=== PATIENT | male | born 1960 | race Caucasian/White ===

== ENCOUNTER 2016-07-28 13:47 | Inpatient (IN) | payer MEDICARE ==
[2016-07-28] MEDS ORDERED: SODIUM CHLORIDE 0.9% 1,000 ML IV STA (14:50)
--- NOTE | 2016-07-28 15:09 | ED ---
General Adult HPI - General Chief complaint: Fall Stated complaint: Fall Time Seen by Provider: 07/28/16 14:21 Source: patient, EMS, RN notes reviewed Mode of arrival: EMS Limitations: no limitations - History of Present Illness Initial comments: Patient 55-year-old male who presents emergency room today by EMS, the chief complaint of fall occurred earlier today. Patient does admit to a history of MS. He states that he was being helped by caretakers when he slipped and fell landing on the left side. Doesn't pain to the left shoulder. Admits that he hit the left side of his face. Patient denies any headache. Does admit to some neck pain. Admits some pain in his lower back as well. Patient currently denies any other complaints or symptoms at this time. Patient denies any recent fever, chills, shortness of breath, chest pain, back pain, abdominal pain, nausea or vomiting, numbness or tingling, dysuria or hematuria, constipation or diarrhea, visual changes, or any other complaints. - Related Data Home Medications Medication Instructions Recorded Confirmed Aspirin EC [Ecotrin] 81 mg PO DAILY 08/02/14 07/28/16 Baclofen [Lioresal] 10 mg PO DAILY 08/02/14 07/28/16 Escitalopram Oxalate [Lexapro] 20 mg PO DAILY 08/02/14 07/28/16 ALPRAZolam [Xanax] 0.25 mg PO BID PRN 06/15/15 07/28/16 Gabapentin [Neurontin] 600 mg PO TID 06/15/15 07/28/16 Potassium Chloride [Klor-Con 20] 20 meq PO DAILY 06/15/15 07/28/16 Spironolactone 50 mg PO BID 06/15/15 07/28/16 traMADol HCL [Ultram] 50 mg PO BID 06/15/15 07/28/16 Atorvastatin [Lipitor] 5 mg PO HS 07/28/16 07/28/16 Exenatide Microspheres [Bydureon 2 mg SQ TH 07/28/16 07/28/16 Pen] Furosemide [Lasix] 40 mg PO DAILY 07/28/16 07/28/16 Glatiramer Acetate [Copaxone] 20 mg SQ DAILY 07/28/16 07/28/16 Insulin Aspart [NovoLOG Flexpen] See Protocol SQ ACHS 07/28/16 07/28/16 L.acidoph,Paracasei, B.lactis 1 cap PO DAILY 07/28/16 07/28/16 [Probiotic] Loperamide HCl [Imodium A-D] 4 mg PO DAILY PRN 07/28/16 07/28/16 Losartan [Cozaar] 50 mg PO DAILY 07/28/16 07/28/16 QUEtiapine [SEROquel] 50 mg PO HS 07/28/16 07/28/16 lamoTRIgine [LaMICtal] 25 mg PO BID 07/28/16 07/28/16 Allergies Allergy/AdvReac Type Severity Reaction Status Date / Time No Known Allergies Allergy Verified 07/28/16 14:58 Review of Systems ROS Statement: Those systems with pertinent positive or pertinent negative responses have been documented in the HPI. ROS Other: All systems not noted in ROS Statement are negative. Past Medical History Past Medical History: Heart Failure, Dementia, Diabetes Mellitus, Hyperlipidemia , Hypertension Additional Past Medical History / Comment(s): MS, vertigo, prostate History of Any Multi-Drug Resistant Organisms: None Reported Past Surgical History: No Surgical Hx Reported Past Psychological History: Depression Smoking Status: Former smoker Past Alcohol Use History: None Reported Past Drug Use History: None Reported General Exam - General Exam Comments Initial Comments: General: The patient is awake and alert, in no distress, and does not appear acutely ill. Patient resting comfortably and C-collared. Eye: Pupils are equal, round and reactive to light, extra-ocular movements are intact. No nystagmus. There is normal conjunctiva bilaterally. No signs of icterus. Ears, nose, mouth and throat: There are moist mucous membranes and no oral lesions. Neck: The neck is supple, there is no tenderness or JVD. Cardiovascular: There is a regular rate and rhythm. No murmur, rub or gallop is appreciated. Respiratory: Lungs are clear to auscultation, respirations are non-labored, breath sounds are equal. No wheezes, stridor, rales, or rhonchi. Gastrointestinal: Soft, non-distended, non-tender abdomen without masses or organomegaly noted. There is no rebound or guarding present. No CVA tenderness. Bowel sounds are unremarkable. Musculoskeletal: Patient has decreased range of motion of both left upper extremity and lower extremities. (Patient states chronic). Increased pain on palpation to the left shoulder. No obvious deformity. Pulses equal bilaterally 2+. Sensation intact. Shows good range of motion slightly decreased with abduction. Full range motion of right upper extremity. Strength 5/5 on the side. Neurological: A&O x 3. CN II-XII intact, There are no obvious motor or sensory deficits. Coordination appears grossly intact. Speech is normal. Skin: Skin is warm and dry and no rashes or lesions are noted. Psychiatric: Cooperative, appropriate mood & affect, normal judgment. Limitations: no limitations Course Vital Signs 07/28/16 07/28/16 14:07 16:21 Temperature 97.8 F 99.1 F Pulse Rate 109 H 103 H Respiratory 16 20 Rate Blood Pressure 117/72 O2 Sat by Pulse 95 93 L Oximetry Medical Decision Making - Medical Decision Making Patient's CAT scan reviewed and negative. Patient's x-rays reviewed unremarkable. Patient's last been reviewed. Patient be admitted for this exacerbation started on steroids here in the emergency room. Case discussed with attending physician Dr. Burr who did discuss case with physician Dr. Bangura who will admit the patient with consult Neurology. - Lab Data Result diagrams: 07/28/16 15:20 07/28/16 15:20 Lab Results 07/28/16 07/28/16 07/28/16 Range/Units 15:20 15:20 15:51 WBC 10.9 H (3.8-10.6) k/uL RBC 5.00 (4.30-5.90) m/uL Hgb 15.9 (13.0-17.5) gm/dL Hct 46.3 (39.0-53.0) % MCV 92.5 (80.0-100.0) fL MCH 31.8 (25.0-35.0) pg MCHC 34.4 (31.0-37.0) g/dL RDW 12.4 (11.5-15.5) % Plt Count 305 (150-450) k/uL Neutrophils % 76 % Lymphocytes % 16 % Monocytes % 5 % Eosinophils % 1 % Basophils % 0 % Neutrophils # 8.3 H (1.3-7.7) k/uL Lymphocytes # 1.7 (1.0-4.8) k/uL Monocytes # 0.5 (0-1.0) k/uL Eosinophils # 0.1 (0-0.7) k/uL Basophils # 0.0 (0-0.2) k/uL Sodium 140 (137-145) mmol/L Potassium 4.4 (3.5-5.1) mmol/L Chloride 98 (98-107) mmol/L Carbon Dioxide 28 (22-30) mmol/L Anion Gap 14 mmol/L BUN 15 (9-20) mg/dL Creatinine 0.58 L (0.66-1.25) mg/dL Est GFR (MDRD) Af Amer >60 (>60 ml/min/1.73 sqM) Est GFR (MDRD) Non-Af >60 (>60 ml/min/1.73 sqM) Glucose 203 H (74-99) mg/dL Calcium 9.7 (8.4-10.2) mg/dL Total Bilirubin 0.5 (0.2-1.3) mg/dL AST 28 (17-59) U/L ALT 39 (21-72) U/L Alkaline Phosphatase 142 H (38-126) U/L Total Protein 7.7 (6.3-8.2) g/dL Albumin 4.3 (3.5-5.0) g/dL Urine Color Yellow Urine Appearance Clear (Clear) Urine pH 5.0 (5.0-8.0) Ur Specific [place] 1.012 (1.001-1.035) Urine Protein Trace H (Negative) Urine Glucose (UA) 3+ H (Negative) Urine Ketones Negative (Negative) Urine Blood Negative (Negative) Urine Nitrate Negative (Negative) Urine Bilirubin Negative (Negative) Urine Urobilinogen <2.0 (<2.0) mg/dL Ur Leukocyte Esterase Negative (Negative) Urine Opiates Screen Not Detected (NotDetected) Ur Oxycodone Screen Not Detected (NotDetected) Urine Methadone Screen Not Detected (NotDetected) Ur Propoxyphene Screen Not Detected (NotDetected) Ur Barbiturates Screen Not Detected (NotDetected) U Tricyclic Antidepress Not Detected (NotDetected) Ur Phencyclidine Scrn Not Detected (NotDetected) Ur Amphetamines Screen Not Detected (NotDetected) U Methamphetamines Scrn Not Detected (NotDetected) U Benzodiazepines Scrn Detected H (NotDetected) Urine Cocaine Screen Not Detected (NotDetected) U Marijuana (THC) Screen Not Detected (NotDetected) Disposition Clinical Impression: Fall, Exacerbation of multiple sclerosis Disposition: ADMITTED IP TO THIS HOSP Condition: Stable Time of Disposition: 17:34
[2016-07-28 15:56] LABS: Basophils % (A) 0 %; CH 32.7; CHCM 35.5; Eosinophils # (A) 0.1 k/uL (0-0.7); Eosinophils % (A) 1 %; HCT 46.3 % (39.0-53.0); HDW 2.71; HGB 15.9 gm/dL (13.0-17.5); Luc # (Auto) 0.17; Luc % (Auto) 2; Lymphocytes # (A) 1.7 k/uL (1.0-4.8); Lymphocytes % (A) 16 %; MCH 31.8 pg (25.0-35.0); MCHC 34.4 g/dL (31.0-37.0); MCV 92.5 fL (80.0-100.0); Mean Platelet Volume 7.6; Monocytes # (A) 0.5 k/uL (0-1.0); Monocytes % (A) 5 %; Neutrophils # (A) 8.3 k/uL (1.3-7.7); Neutrophils % (A) 76 %; RDW 12.4 % (11.5-15.5); WBC 10.9 k/uL (3.8-10.6); WBC (Perox) 11.19
[2016-07-28 16:04] LABS: Appearance,Urine Clear (Clear); Bilirubin,Urine Negative (Negative); Glucose,Urine (UA) 3+ (Negative); Ketones,Urine Negative (Negative); Leukocyte Esterase,Urine Negative (Negative); Nitrite,Urine Negative (Negative); Protein,Urine Trace (Negative); Specific Gravity,Urine 1.012 (1.001-1.035); UA Billing (MACRO vs. MICRO) CHEM; Urobilinogen,Urine <2.0 mg/dL (<2.0)
[2016-07-28 16:08] LABS: ALT 39 U/L (21-72); AST 28 U/L (17-59); Alkaline Phosphatase 142 U/L (38-126); Anion Gap 14 mmol/L; Blood Urea Nitrogen 15 mg/dL (9-20); Calcium 9.7 mg/dL (8.4-10.2); Carbon Dioxide 28 mmol/L (22-30); Chloride 98 mmol/L (98-107); Glucose 203 mg/dL (74-99); Non-African American GFR(MDRD) >60 (>60 ml/min/1.73 sqM); Potassium 4.4 mmol/L (3.5-5.1); Sodium 140 mmol/L (137-145); Total Bilirubin 0.5 mg/dL (0.2-1.3); Total Protein 7.7 g/dL (6.3-8.2)
--- NOTE | 2016-07-28 16:25 | CT ---
EXAMINATION TYPE: CT brain april beckwith DATE OF EXAM: 07/28/2016 4:18 PM COMPARISON: NONE HISTORY: Fall today. CT DLP: 1683.20 mGycm Automated exposure control for dose reduction was used. TECHNIQUE: CT scan of the brain and cervical spine are performed without contrast. FINDINGS: Brain: There are generalized changes of sulcal prominence and ventriculomegaly, compatible with atrop hic change. There is diffuse periventricular white matter lucency, compatible with small vessel ische mekhi change. There is no acute focal lesion, mass effect or midline shift identified. I do not see chuckie dence of intracranial blood. There is minimal mucoperiosteal thickening involving the ethmoid air cells. No depressed skull fractu re is seen. IMPRESSION: 1. NO ACUTE INTRACRANIAL ABNORMALITY. 2. ATROPHIC CHANGE. 3. CHRONIC WHITE MATTER ISCHEMIC CHANGE. Cervical spine: There are emphysematous changes within the lungs. There is some shotty cervical adeno robbie. Prevertebral soft tissues are otherwise unremarkable. There is straightening of the normal cervical lordosis. Vertebral body height and alignment are maint ained. Atlantoaxial relationships are normal. There is disc space loss and hypertrophic spondylosis at C5-6 and C6-7. There is uncovertebral joint disease at these levels also. No fracture is seen. IMPRESSION: 1. NO ACUTE OSSEOUS LESION. 2. DEGENERATIVE CHANGE. 3. EMPHYSEMATOUS CHANGES WITHIN THE LUNGS.
[2016-07-28] MEDS ORDERED: methylPREDNISolone SOD SUCCI 125 MG/2 ML VIAL IV STA (17:35)
[2016-07-28] MEDS ORDERED: ACETAMINOPHEN TAB 325 MG TAB PO PRN (17:36)
[2016-07-28] MEDS ORDERED: SODIUM CHLORIDE 0.9% 1,000 ML IV ONE (17:36)
[2016-07-28] MEDS ORDERED: ONDANSETRON 4 MG/2 ML VIAL IVP PRN (17:36)
[2016-07-28] MEDS ORDERED: MORPHINE SULFATE 4 MG/ML SYRINGE IV PRN (17:36)
[2016-07-28] MEDS ORDERED: LORazepam 2 MG/ML SYRINGE IV PRN (17:36)
[2016-07-28] MEDS ORDERED: NALOXONE 0.4 MG/ML 1 ML VIAL IV PRN (17:36)
--- NOTE | 2016-07-28 18:05 | XR ---
EXAMINATION TYPE: XR shoulder complete LT DATE OF EXAM: 07/28/2016 5:30 PM COMPARISON: 08/02/2014 HISTORY: Pain after injury TECHNIQUE: Apartment technique 3 views FINDINGS: Bones and joints and soft tissues are negative for fracture or malalignment or other findin gs. IMPRESSION: No acute process.
--- NOTE | 2016-07-28 18:07 | XR ---
EXAMINATION TYPE: XR lumbar spine 2 or 3V DATE OF EXAM: 07/28/2016 5:30 PM COMPARISON: February 21, 2016 HISTORY: Low back pain after fall TECHNIQUE: 3 views FINDINGS: Negative for fracture or malalignment. Prominent multilevel degenerative osteoarthritis yadiel nges appreciated. Relatively mild degenerative disc multilevel changes. IMPRESSION: Negative for fracture or malalignment. No focal findings.
[2016-07-28 18:57] LABS: Hemoglobin A1C 8.7 % (4.2-6.1)
[2016-07-28 20:16] LABS: Glucose,Whole Blood 217 mg/dL (75-99)
[2016-07-28] MEDS: QUEtiapine 50 MG TAB PO SCH (20:53)
[2016-07-28] MEDS: traMADol 50 MG TAB PO SCH (20:53)
[2016-07-28] MEDS: GABAPENTIN 300 MG CAP PO SCH (20:53)
[2016-07-28] MEDS: SPIRONOLACTONE 25 MG TAB PO SCH (20:53)
[2016-07-28] MEDS: lamoTRIgine 25 MG TAB PO SCH (20:53)
[2016-07-28] MEDS: ATORVASTATIN 10 MG TAB PO SCH (20:54)
[2016-07-28] MEDS: INSULIN LISPRO (humaLOG) 300 UNIT/3 ML VIAL SQ SCH (20:54)
[2016-07-29 07:19] LABS: Glucose,Whole Blood 182 mg/dL (75-99)
[2016-07-29 08:37] LABS: Basophils # (A) 0.1 k/uL (0-0.2); Basophils % (A) 1 %; CH 32.5; CHCM 34.5; Eosinophils # (A) 0.1 k/uL (0-0.7); Eosinophils % (A) 2 %; HCT 40.9 % (39.0-53.0); HDW 2.69; HGB 13.6 gm/dL (13.0-17.5); Luc # (Auto) 0.19; Luc % (Auto) 3; Lymphocytes % (A) 30 %; MCH 31.3 pg (25.0-35.0); MCHC 33.1 g/dL (31.0-37.0); MCV 94.5 fL (80.0-100.0); Mean Platelet Volume 7.2; Monocytes # (A) 0.5 k/uL (0-1.0); Monocytes % (A) 7 %; Neutrophils # (A) 3.8 k/uL (1.3-7.7); Neutrophils % (A) 58 %; RBC 4.33 m/uL (4.30-5.90); RDW 12.6 % (11.5-15.5); WBC 6.7 k/uL (3.8-10.6)
[2016-07-29] MEDS: INSULIN LISPRO (humaLOG) 300 UNIT/3 ML VIAL SQ SCH ×4 (08:52→20:25)
[2016-07-29] MEDS: FUROSEMIDE 40 MG TAB PO SCH (08:55)
[2016-07-29] MEDS: LOSARTAN 50 MG TAB PO SCH (08:55)
[2016-07-29] MEDS: BACLOFEN 10 MG TAB PO SCH (08:55)
[2016-07-29] MEDS: lamoTRIgine 25 MG TAB PO SCH ×2 (08:55→20:26)
[2016-07-29] MEDS: GABAPENTIN 300 MG CAP PO SCH (08:55)
[2016-07-29 08:56] LABS: ALT 41 U/L (21-72); AST 21 U/L (17-59); Alkaline Phosphatase 131 U/L (38-126); Anion Gap 10 mmol/L; Blood Urea Nitrogen 20 mg/dL (9-20); Calcium 9.3 mg/dL (8.4-10.2); Carbon Dioxide 26 mmol/L (22-30); Chloride 102 mmol/L (98-107); Glucose 174 mg/dL (74-99); Non-African American GFR(MDRD) >60 (>60 ml/min/1.73 sqM); Potassium 4.1 mmol/L (3.5-5.1); Sodium 138 mmol/L (137-145); Total Bilirubin 0.6 mg/dL (0.2-1.3); Total Protein 6.6 g/dL (6.3-8.2)
[2016-07-29] MEDS: ASPIRIN 81 MG CHEW PO SCH (08:56)
[2016-07-29] MEDS: ESCITALOPRAM 20 MG TAB PO SCH (08:56)
[2016-07-29] MEDS: SPIRONOLACTONE 25 MG TAB PO SCH ×2 (08:56→20:25)
[2016-07-29] MEDS: POTASSIUM CHLORIDE ER 20 MEQ TAB.ER PO SCH (08:57)
[2016-07-29] MEDS: LACTOBACILLUS ACIDOPH & BULGAR 1 EACH PACKET PO SCH (08:57)
[2016-07-29] MEDS ORDERED: GLATIRAMER ACETATE 20 MG SQ SCH (09:00)
[2016-07-29] MEDS: traMADol 50 MG TAB PO SCH ×2 (09:00→20:24)
[2016-07-29 12:05] LABS: Glucose,Whole Blood 260 mg/dL (75-99)
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
[2016-07-29] MEDS: GABAPENTIN 400 MG CAP PO SCH ×2 (17:01→23:20)
[2016-07-29 17:44] LABS: Glucose,Whole Blood 151 mg/dL (75-99)
--- NOTE | 2016-07-29 17:46 | HP ---
DATE OF ADMISSION: 07/28/2016 PRESENTING COMPLAINT: Falls. HISTORY OF PRESENTING COMPLAINT: This is a 55-year-old patient of [facility] Dr. Gomez. Patient is in [facility] up to about 4 to 5 days ago and then went to private setting. Patient presented with fall. Patient is a poor historian. Patient's chronic stable medical condition appears to be dementia, diabetes, hyperlipidemia, hypertension, multiple sclerosis, depression. There is some concern about multiple sclerosis exacerbation and he was admitted. Patient stated that he is a bit unsteady on his feet and falls. Patient is not a good historian. The patient stopped smoking some time ago. Patient does seem to have a legal guardian. Legal guardian was conveyed to the nurse. REVIEW OF SYSTEMS: CONSTITUTIONAL: Tired. HEENT: None. RESPIRATORY: Occasional short of breath. CARDIOVASCULAR: None. GASTROINTESTINAL: None. GENITOURINARY: None. MUSCULOSKELETAL: Some pain in the joints. DERMATOLOGIC: None. HEMATOLOGIC: None. LYMPHATIC: None. PSYCHIATRY: Forgetful. NEUROLOGICAL: Unsteady on his feet. PAST MEDICAL HISTORY: Congestive heart failure, dementia, diabetes mellitus type 2, hyperlipidemia, hypertension, multiple sclerosis, prostate problems, depression. PAST SURGICAL HISTORY: None. SOCIAL HISTORY: The patient was at [facility], now living at a private room and board and has a legal guardian. The patient stopped smoking 5 years ago. Denies alcohol intake. FAMILY HISTORY: The patient does not remember. HOME MEDICATIONS: 1. NovoLog FlexPen per protocol. 2. Bydureon 2 mg Monday and . 3. Lexapro 20 mg p.o. daily. 4. Lamictal 25 mg p.o. b.i.d. 5. Seroquel 50 mg p.o. q.h.s. 6. Baclofen 10 mg p.o. daily. 7. Imodium AD 4 mg daily p.r.n. 8. Lipitor 5 mg q.h.s. 9. Probiotic 1 capsule p.o. daily. 10. Ultram 50 mg p.o. b.i.d. 11. Aspirin 81 mg daily. 12. Xanax 0.25 p.o. b.i.d. p.r.n. 13. Cozaar 50 mg p.o. daily. 14. Aldactone 50 mg p.o. b.i.d. 15. Copaxone 20 mg subcu daily. 16. Potassium 20 mEq p.o. daily. 17. Neurontin 600 mg p.o. t.i.d. 18. Lasix 40 mg p.o. daily. ALLERGIES: None. On examination vital signs on presentation: Temperature 97.4, pulse 96, respiration 20, blood pressure 120/72, pulse ox 95% on room air. GENERAL APPEARANCE: Well built, ( ), unkempt, sitting up. EYES: Pupils equal. Conjunctivae normal. HEENT: Oral cavity normal. NECK: JVD not raised. Mass not palpable. RESPIRATORY: Effort normal. LUNGS: Diminished breath sounds. CARDIOVASCULAR: First and second sounds normal. No edema. ABDOMEN: Soft, nontender. Liver and spleen not palpable. LYMPHATIC: No lymph nodes palpable in neck or axillae. PSYCHIATRY: Patient able to answer simple questions, but otherwise is slow in response. INVESTIGATIONS: White count 10.9, hemoglobin 15.9, potassium 4.4. BUN 15, creatinine 0.58. Accu-Cheks are noted. ASSESSMENT: 1. Possible acute metabolic encephalopathy, could be from patient getting Lexapro, Seroquel and patient got a good dose of Neurontin. 2. Diabetes mellitus type 2. 3. Hyperlipidemia. 4. Hypertension. 5. Multiple sclerosis. 6. Depression, not otherwise specified. PLAN: Will get a psychiatry opinion. In the meantime, will cut back on patient's Neurontin to 400 mg 3 times a day. Other home medication are resumed. Will get a psychiatry opinion too. Neurology was consulted to see if this is a flare-up of multiple sclerosis, but does not seem to be so. end worker is involved.
[2016-07-29] MEDS: ATORVASTATIN 10 MG TAB PO SCH (20:25)
[2016-07-29 20:26] LABS: Glucose,Whole Blood 209 mg/dL (75-99)
[2016-07-29] MEDS: QUEtiapine 50 MG TAB PO SCH (20:26)
[2016-07-29] MEDS: ALPRAZolam 0.25 MG TAB PO PRN (20:27)
[2016-07-30 07:33] LABS: Glucose,Whole Blood 203 mg/dL (75-99)
[2016-07-30] MEDS: SPIRONOLACTONE 25 MG TAB PO SCH (09:19)
[2016-07-30] MEDS: POTASSIUM CHLORIDE ER 20 MEQ TAB.ER PO SCH (09:20)
[2016-07-30] MEDS: ASPIRIN 81 MG CHEW PO SCH (09:20)
[2016-07-30] MEDS: ESCITALOPRAM 20 MG TAB PO SCH (09:20)
[2016-07-30] MEDS: GABAPENTIN 400 MG CAP PO SCH ×3 (09:20→21:40)
[2016-07-30] MEDS: BACLOFEN 10 MG TAB PO SCH (09:21)
[2016-07-30] MEDS: traMADol 50 MG TAB PO SCH (09:21)
[2016-07-30] MEDS: LOSARTAN 50 MG TAB PO SCH (09:21)
[2016-07-30] MEDS: FUROSEMIDE 40 MG TAB PO SCH (09:21)
[2016-07-30] MEDS: INSULIN LISPRO (humaLOG) 300 UNIT/3 ML VIAL SQ SCH ×4 (09:28→21:39)
[2016-07-30] MEDS: LACTOBACILLUS ACIDOPH & BULGAR 1 EACH PACKET PO SCH (09:48)
[2016-07-30] MEDS: lamoTRIgine 25 MG TAB PO SCH ×2 (09:48→21:40)
[2016-07-30 12:01] LABS: Glucose,Whole Blood 289 mg/dL (75-99)
[2016-07-30 16:37] LABS: Glucose,Whole Blood 276 mg/dL (75-99)
[2016-07-30 20:46] LABS: Glucose,Whole Blood 219 mg/dL (75-99)
[2016-07-30] MEDS: ALPRAZolam 0.25 MG TAB PO PRN (21:37)
[2016-07-30] MEDS: ATORVASTATIN 10 MG TAB PO SCH (21:39)
[2016-07-30] MEDS: QUEtiapine 50 MG TAB PO SCH (21:40)
--- NOTE | 2016-07-30 22:54 | PN ---
DATE OF SERVICE: 07/30/2016 PRESENTING COMPLAINT: Falls. INTERVAL HISTORY: This is a patient admitted with metabolic encephalopathy felt to be medication induced to a certain degree. Seen by Neurology, not felt to be MS. Patient is somewhat tired, lethargic, slow to speak, sitting up on a chair. Review of systems done for constitutional, cardiovascular, GI, pulmonary; relevant findings as above. Current medications are reviewed. On examination, temperature 97.8, pulse 80, respirations 17, blood pressure 106/66, pulse ox 93% on room air. GENERAL APPEARANCE: Sitting up, tired -appearing, lethargic. EYES: Pupils equal. Conjunctivae normal. NECK: JVD not raised. Mass not palpable. RESPIRATORY: Effort normal. LUNGS: Decreased breath sounds. CARDIOVASCULAR: First and second sounds normal. No edema. ABDOMEN: Soft, nontender. Liver and spleen not palpable. PSYCHIATRY: Slow to answer questions. NEUROLOGICAL: Moving all 4 limbs. INVESTIGATIONS: Accu-Cheks are noted. ASSESSMENT: 1. Acute metabolic encephalopathy. Patient is on multiple medications that could affect sensorium. Dose of Neurontin was cut back yesterday. 2. Diabetes mellitus type 2 on oral hypoglycemic. 3. Hyperlipidemia. 4. Essential hypertension. 5. Multiple sclerosis. 6. Depression, not otherwise specified. PLAN: I will stop patient's Ultram and also stop the baclofen that could together affect the patient's sensorium. The patient does not complain of much pain right now. The patient is also on Lamictal. Will keep the same and on Seroquel at night. Given the patient's blood pressure is running on the lower side, will also cut down on the dose of Aldactone, see how patient does and continue with the same. Will also get a psychiatry opinion.
[2016-07-31 07:52] LABS: Glucose,Whole Blood 177 mg/dL (75-99)
[2016-07-31] MEDS: INSULIN LISPRO (humaLOG) 300 UNIT/3 ML VIAL SQ SCH ×4 (09:12→21:32)
[2016-07-31] MEDS: ESCITALOPRAM 20 MG TAB PO SCH (09:14)
[2016-07-31] MEDS: lamoTRIgine 25 MG TAB PO SCH ×2 (09:14→21:31)
[2016-07-31] MEDS: LACTOBACILLUS ACIDOPH & BULGAR 1 EACH PACKET PO SCH (09:14)
[2016-07-31] MEDS: ASPIRIN 81 MG CHEW PO SCH (09:14)
[2016-07-31] MEDS: GABAPENTIN 400 MG CAP PO SCH ×3 (09:14→21:31)
[2016-07-31] MEDS: FUROSEMIDE 40 MG TAB PO SCH (09:14)
[2016-07-31] MEDS: SPIRONOLACTONE 25 MG TAB PO SCH (09:15)
[2016-07-31] MEDS: LOSARTAN 50 MG TAB PO SCH (09:15)
[2016-07-31 12:02] LABS: Glucose,Whole Blood 421 mg/dL (75-99)
[2016-07-31 17:21] LABS: Glucose,Whole Blood 169 mg/dL (75-99)
[2016-07-31 20:11] LABS: Glucose,Whole Blood 201 mg/dL (75-99)
[2016-07-31] MEDS ORDERED: INSULIN GLARGINE 100 UNIT/ML 10 ML VIAL SQ SCH (21:00)
[2016-07-31] MEDS: QUEtiapine 50 MG TAB PO SCH (21:31)
[2016-07-31] MEDS: ATORVASTATIN 10 MG TAB PO SCH (21:32)
[2016-08-01 07:10] LABS: Glucose,Whole Blood 172 mg/dL (75-99)
[2016-08-01] MEDS ORDERED: INSULIN LISPRO (humaLOG) 300 UNIT/3 ML VIAL SQ SCH (07:30)
[2016-08-01] MEDS: GABAPENTIN 400 MG CAP PO SCH ×2 (09:08→17:55)
[2016-08-01] MEDS: LACTOBACILLUS ACIDOPH & BULGAR 1 EACH PACKET PO SCH (09:08)
[2016-08-01] MEDS: INSULIN NPH/REG INSULIN 70/30 300 UNIT/3 ML VIAL SQ SCH ×2 (09:08→17:53)
[2016-08-01] MEDS: lamoTRIgine 25 MG TAB PO SCH ×2 (09:08→21:16)
[2016-08-01] MEDS: FUROSEMIDE 40 MG TAB PO SCH (09:08)
[2016-08-01] MEDS: ESCITALOPRAM 20 MG TAB PO SCH (09:08)
[2016-08-01] MEDS: ASPIRIN 81 MG CHEW PO SCH (09:09)
[2016-08-01] MEDS: LOSARTAN 50 MG TAB PO SCH (09:09)
[2016-08-01] MEDS: INSULIN LISPRO (humaLOG) 300 UNIT/3 ML VIAL SQ SCH ×4 (09:09→21:16)
[2016-08-01] MEDS: SPIRONOLACTONE 25 MG TAB PO SCH (09:09)
--- NOTE | 2016-08-01 10:43 | PN ---
DATE OF SERVICE: 07/31/2016 PRESENTING COMPLAINT: Fall. INTERVAL HISTORY: This patient is felt to be admitted with falls from metabolic encephalopathy from medications that have been cut back. Patient is sleeping when I walked in but per the staff patient did really well, ate really well, far more awake after cutting back his medications. Sugars have been running high. Review of systems attempted, but patient decided to keep sleeping. Current medications are reviewed. On examination, temperature 97.3, pulse 94, respirations 17, blood pressure 115/77, pulse ox 97% on room air. GENERAL APPEARANCE: Lying in bed, sleeping. Will not wake up. EYES: Pupils equal. Conjunctivae ( ). NECK: JVD not raised. Mass not palpable. RESPIRATORY: Effort normal. LUNGS: Diminished breath sounds. CARDIOVASCULAR: First and second sounds normal. No edema. ABDOMEN: Soft, nontender. Liver and spleen not palpable. PSYCHIATRY: Patient communicating well with the nurses earlier today. INVESTIGATIONS: Accu-Cheks are noted, 177, 420, 169, 201. ASSESSMENT: 1. Acute metabolic encephalopathy, the patient is on multiple medications, doing much better after some of these medications have been cut back including baclofen, Ultram, and Neurontin was cut back. We will keep the Seroquel at night. 2. Diabetes mellitus type 2 uncontrolled. 3. Hyperlipidemia. 4. Essential hypertension. 5. Multiple sclerosis. 6. Depression, not otherwise specified. PLAN: We will start the patient on 70/30. Go from there.
[2016-08-01 11:54] LABS: Glucose,Whole Blood 221 mg/dL (75-99)
--- NOTE | 2016-08-01 12:47 | XR ---
EXAMINATION TYPE: XR chest 2V DATE OF EXAM: 08/01/2016 12:43 PM COMPARISON: 03/11/2012 HISTORY: Shortness of breath TECHNIQUE: Frontal and lateral views of the chest are obtained. FINDINGS: Scattered senescent parenchymal changes noted. Hyperinflation compatible with COPD. No evidence for infiltrate. No evidence for atelectasis. Heart size is stable. Mediastinal structures are stable and grossly unremarkable. No evidence for hilar prominence. Degenerative changes dorsal spine. IMPRESSION: 1. No evidence for acute pulmonary disease.
[2016-08-01 17:16] LABS: Glucose,Whole Blood 180 mg/dL (75-99)
[2016-08-01 21:15] LABS: Glucose,Whole Blood 211 mg/dL (75-99)
[2016-08-01] MEDS: ATORVASTATIN 10 MG TAB PO SCH (21:15)
[2016-08-01] MEDS: QUEtiapine 50 MG TAB PO SCH (21:16)
[2016-08-01] MEDS: GABAPENTIN 300 MG CAP PO SCH (21:16)
[2016-08-02 07:11] LABS: Glucose,Whole Blood 151 mg/dL (75-99)
[2016-08-02] MEDS: INSULIN NPH/REG INSULIN 70/30 300 UNIT/3 ML VIAL SQ SCH ×2 (09:37→18:45)
[2016-08-02] MEDS: INSULIN LISPRO (humaLOG) 300 UNIT/3 ML VIAL SQ SCH ×4 (09:37→22:49)
[2016-08-02] MEDS: lamoTRIgine 25 MG TAB PO SCH ×2 (09:38→21:22)
[2016-08-02] MEDS: SPIRONOLACTONE 25 MG TAB PO SCH (09:38)
[2016-08-02] MEDS: LACTOBACILLUS ACIDOPH & BULGAR 1 EACH PACKET PO SCH (09:38)
[2016-08-02] MEDS: LOSARTAN 50 MG TAB PO SCH (09:38)
[2016-08-02] MEDS: FUROSEMIDE 40 MG TAB PO SCH (09:38)
[2016-08-02] MEDS: ESCITALOPRAM 20 MG TAB PO SCH (09:38)
[2016-08-02] MEDS: GABAPENTIN 300 MG CAP PO SCH ×3 (09:38→21:35)
[2016-08-02] MEDS: ASPIRIN 81 MG CHEW PO SCH (09:38)
--- NOTE | 2016-08-02 09:48 | PN ---
DATE OF SERVICE: 08/01/2016 PRESENTING COMPLAINT: Fall. INTERVAL HISTORY: This patient presented with fall from metabolic encephalopathy from medications that are being adjusted. Sugars had been running high. Patient continues to get more awake. Review of systems done for constitutional, cardiovascular, GI, pulmonary; relevant findings as above. Current medications are reviewed. On examination, temperature 98.1, pulse 73, respirations 18, blood pressure 120/70, pulse ox 96% on room air. GENERAL APPEARANCE: Lying in bed, more awake. EYES: Pupils equal. Conjunctiva normal. NECK: JVD not raised. Mass not palpable. RESPIRATORY: Effort normal. LUNGS: Diminished breath sounds. CARDIOVASCULAR: First and second sounds normal. No edema. ABDOMEN: Soft, nontender. Liver and spleen not palpable. PSYCHIATRY: Communicating better. INVESTIGATIONS: Accu-Cheks are noted, 172, 221, 180. ASSESSMENT: 1. Acute metabolic encephalopathy, medication induced, slowly improving. The patient is getting better, appears to be comprehending better. 2. Diabetes mellitus type 2, uncontrolled, though numbers are starting to look better. 3. Hyperlipidemia. 4. Essential hypertension. 5. Multiple sclerosis. 6. ( ), not specified. 7. Gait dysfunction. PLAN: The patient started on 70/30. Sugars are looking a bit better. The patient will need at least 24 to 48 hours further inpatient for more stabilized with safety for discharge. The patient should be inpatient because medications are currently being adjusted. Will await further assessment from physical therapy.
[2016-08-02 11:18] LABS: Glucose,Whole Blood 272 mg/dL (75-99)
--- NOTE | 2016-08-02 12:04 | ECHOF ---
Referral Reason:assess LV function MEASUREMENTS -------- HEIGHT: 167.6 cm WEIGHT: 97.1 kg BP: 148/71 RVIDd: 2.4 cm (< 3.3) IVSd: 0.9 cm (0.6 - 1.1) LVIDd: 4.1 cm (3.9 - 5.3) LVPWd: 1.2 cm (0.6 - 1.1) IVSs: 1.9 cm LVIDs: 2.9 cm LVPWs: 1.6 cm LAESV Index (A-L): 12.47 ml/m Ao Diam: 3.4 cm (2.0 - 3.7) AV Cusp: 2.3 cm (1.5 - 2.6) LA Diam: 2.6 cm (2.7 - 3.8) MV EXCURSION: 11.323 mm (> 18.000) MV EF SLOPE: 44 mm/s (70 - 150) EPSS: 1.0 cm MV E Toño: 0.60 m/s MV DecT: 280 ms MV A Toño: 0.90 m/s MV E/A Ratio: 0.67 RAP: 5.00 mmHg FINDINGS -------- Sinus rhythm. This was a technically adequate study. Pt. not able to turn due to pain. There is borderline concentric left ventricular hypertrophy. Overall left ventricular systolic function is normal with, an EF between 55 - 60 %. The right ventricle is normal in size. Normal LA size by volume 22+/-6 ml/m2. The right atrium is normal in size. 1.5mg of Definity was utilized for enhancement of images The aortic valve is trileaflet and appears structurally normal. Mild mitral annular calcification present. There is trace mitral regurgitation. Trace tricuspid regurgitation present. Pulmonic valve appears structurally normal. The aortic root size is normal. Normal inferior vena cava with normal inspiratory collapse consistent with estimated right atrial pressure of 5 mmHg. There is a trivial pericardial effusion present. CONCLUSIONS -------- 1. Sinus rhythm. 2. The aortic valve is trileaflet and appears structurally normal. 3. Mild mitral annular calcification present. 4. There is trace mitral regurgitation. 5. Trace tricuspid regurgitation present. 6. Pulmonic valve appears structurally normal. 7. The aortic root size is normal. 8. There is a trivial pericardial effusion present. 9. This was a technically adequate study. 10. Pt. not able to turn due to pain. 11. There is borderline concentric left ventricular hypertrophy. 12. Overall left ventricular systolic function is normal with, an EF between 55 - 60 %. 13. The right ventricle is normal in size. 14. Normal LA size by volume 22+/-6 ml/m2. 15. The right atrium is normal in size. 16. 1.5mg of Definity was utilized for enhancement of images SWAGER OPERATOR: Tanner Mckeon RDCS
[2016-08-02 17:03] LABS: Glucose,Whole Blood 187 mg/dL (75-99)
[2016-08-02 20:04] LABS: Glucose,Whole Blood 207 mg/dL (75-99)
--- NOTE | 2016-08-02 21:08 | CONS ---
DATE OF CONSULTATION: REASON FOR CONSULTATION: Patient has mood swings. HISTORY OF PRESENT ILLNESS: Patient is 55 -year-old white, male presented to the emergency room on July 28 complaining that he fell down and he stated that he has long history of multiple sclerosis and according to him, he was being helped by his caregiver and he fell down and landing on his left side. Patient was seen by medical physician in addition to Neurology consultation and it seems that the patient is on Suboxone for MS. I did interview with the patient he was very disorganized, delusional, and he kept talking about having more than 150,000 savings. He stated that she just came from [place] because " I had very good job of working over there. Patient is very disoriented, easily agitated, a lot of paranoia and suspicious feeling toward nursing staff in general. He stated "They are trying to take my money and also I don't believe I need to be here, just using my insurance." Patient kept talking about that his father couple of months ago and he left him inheritance up to 26, million dollars and he wanted to go to [place] to get his money. Regarding past psychiatric history, patient had at least 3 to 4 psychiatric admissions. His last admission was here at [facility] in August 2007 with diagnosis of bipolar disorder mixed with psychotic feature. The two previous admissions were in [facility] I am not sure if the patient has been seen with [facility] or if his primary care physician has been giving him his psychotropic medication. His home medication includin. Baclofen 10 mg daily. 2. Aspirin. 3. Escitalopram 20 mg daily. 4. Xanax 0.25 twice a day. 5. Neurontin 600 3 times a day. 6. Potassium. 7. Aldactone 50 mg twice a day. 8. Lipitor. 9. Ultram 50 mg twice a day. 10. Lasix 40 mg daily. 11. Copaxone 20 mg subcutaneous daily. 12. Imodium. 13. Cozaar 50 mg daily. 14. Seroquel 50 mg at bedtime. 15. Lamotrigine 25 mg twice a day. Allergies. There no known allergy. PAST MEDICAL HISTORY: Diabetes, hyperlipidemia, history of coronary artery disease, history of cognitive disorder versus dementia, long history of multiple sclerosis. SOCIAL HISTORY: As the patient is an very psychotic he could not give me any information about his living situation. From the medical record it seems that he was at [facility]; however, he was aggressive and agitated with homicide ideation towards staff there so currently he is living at a room and board place. He has a guardian and he has a caregiver. Past history of substance abuse from the record, patient had history of alcohol abuse in the past SOCIAL HISTORY: It is gathered from the old record patient was once for almost 17 years, ended by divorce and he has 3 grownup children. Patient parents got when he was a child. He has three half-brothers and two half-sisters. He has a seventh-grade education and he was in special education glass. 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 MENTAL STATUS EXAMINATION: Patient is an unkempt disheveled, white main very irritable and agitated, restless, mixed delusion, persecutory delusion and grandiose delusion, very labile. He denied any suicidal ideation. He denied any homicidal ideation. His thought process are very disorganized and tangential. Patient could not participate in the Mini-Mental status exam due to his psychosis. His insight and judgment are very limited. DIAGNOSES: 1. 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 2. History of bipolar disorder mixed with psychotic feature. 3. History of cognitive deficit. PLAN: I will decrease the Lexapro from 20 mg to just 10 mg. I would discontinue Seroquel. Start him on Risperdal. It is less sedating and also we can titrate it up to 6 mg daily to target his psychosis. I do recommend to avoid giving him Xanax or any benzodiazepine as it will make him more disinhibited. Currently he does not meet criteria for psychiatric inpatient treatment, however, I will follow-up as long as he is in the hospital to adjust psychotropic medication. If he is medically clear, I do recommend that he has to be seen by psychiatric to adjust his psychotropic medication. Thank you for the consultation.
[2016-08-02] MEDS: risperiDONE ODT 1 MG TAB PO SCH (21:20)
[2016-08-02] MEDS: ATORVASTATIN 10 MG TAB PO SCH (21:21)
[2016-08-02 22:08] LABS: Glucose,Whole Blood 190 mg/dL (75-99)
--- NOTE | 2016-08-03 05:30 | PN ---
DATE OF SERVICE: 08/02/2016 PRESENTING COMPLAINT: Fall. INTERVAL HISTORY: This patient presented with fall from metabolic encephalopathy from medication that he is doing much with. Seen by Dr. Gill from psychiatry and further medications were adjusted. Patient tolerating his diet. He seems to be far more appropriate. The patient did not participate with physical therapy. I did remind him that he has to participate with therapy. Review of systems done for constitutional, cardiovascular, GI, pulmonary; relevant findings as above. Current medications are reviewed. On examination, temperature 98.5, pulse 92, respirations 20, blood pressure 111/69, pulse ox 91% on room air. GENERAL APPEARANCE: Lying in bed, comfortable. EYES: Pupils equal. Conjunctivae normal. NECK: JVD not raised. Mass not palpable. RESPIRATORY: Effort normal. LUNGS: Diminished breath sounds. CARDIOVASCULAR: First and second sounds normal. No edema. ABDOMEN: Soft, nontender. Liver and spleen not palpable. PSYCHIATRY: Answering questions far more appropriately. INVESTIGATIONS: Accu-Cheks are noted. A 2-D echocardiogram shows preserved LV function. ASSESSMENT: 1. Acute metabolic encephalopathy, medication induced, slowly continues to improve. 2. Diabetes mellitus type 2, uncontrolled on presentation, better. 3. Hyperlipidemia. 4. Essential hypertension. 5. Multiple sclerosis, controlled. 6. Gait dysfunction. 7. Bipolar disorder mixed with psychotic feature. 8. Cognitive deficit. 9. 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 PLAN: Psychiatry adjustment of medications was noted. Patient's Seroquel has been taken off and patient's Risperdal has been added. I do not see the need for Lasix, add Aldactone . Will reduce the Aldactone to 25 and discontinue the Lasix altogether. Will also adjust the patient's dose of 70/30.
[2016-08-03 07:28] LABS: Glucose,Whole Blood 170 mg/dL (75-99)
[2016-08-03] MEDS: INSULIN NPH/REG INSULIN 70/30 300 UNIT/3 ML VIAL SQ SCH ×2 (07:29→18:04)
[2016-08-03] MEDS: INSULIN LISPRO (humaLOG) 300 UNIT/3 ML VIAL SQ SCH ×4 (07:29→20:35)
[2016-08-03] MEDS: LACTOBACILLUS ACIDOPH & BULGAR 1 EACH PACKET PO SCH (07:30)
[2016-08-03] MEDS: SPIRONOLACTONE 25 MG TAB PO SCH (07:30)
[2016-08-03] MEDS: GABAPENTIN 300 MG CAP PO SCH ×3 (07:30→21:05)
[2016-08-03] MEDS: ESCITALOPRAM 10 MG TAB PO SCH (07:30)
[2016-08-03] MEDS: ASPIRIN 81 MG CHEW PO SCH (07:30)
[2016-08-03] MEDS: LOSARTAN 50 MG TAB PO SCH (07:31)
[2016-08-03] MEDS: lamoTRIgine 25 MG TAB PO SCH ×2 (07:31→20:36)
[2016-08-03 11:58] LABS: Glucose,Whole Blood 229 mg/dL (75-99)
--- NOTE | 2016-08-03 14:29 | P.PN ---
Progress Note - Text SUBJECTIVE: Patient was seen for psychiatric follow-up ,was on his wheelchair ,less agitated ,less disorganized,talked about his past experience going through different countries :I used to work, on [place] ,we used to go to [facility] in [place] "patient is less delusional ,and his affect is appropriate MENTAL STATUS EXAM: Patient is on wheel chair ,did recall that he saw me yesterday ,friendly ,at times intrusive and asking lot of personal questions but easy to redirect, denies any suicidal or homicidal ideation ,denies any hallucinations ,insight is limited ASSESSMENT :MOOD DISORDER DUE TO MS PLAN: Increase Lamictal to 50 MG BID ,continue rest of psychotropic meds ,same dose
[2016-08-03 16:36] LABS: Glucose,Whole Blood 201 mg/dL (75-99)
[2016-08-03 20:09] LABS: Glucose,Whole Blood 180 mg/dL (75-99)
[2016-08-03] MEDS: ATORVASTATIN 10 MG TAB PO SCH (20:32)
[2016-08-03] MEDS: risperiDONE ODT 1 MG TAB PO SCH (20:34)
[2016-08-04 07:05] LABS: Glucose,Whole Blood 182 mg/dL (75-99)
[2016-08-04 08:32] LABS: Basophils # (A) 0.1 k/uL (0-0.2); Basophils % (A) 1 %; CH 32.4; Eosinophils # (A) 0.1 k/uL (0-0.7); Eosinophils % (A) 2 %; HCT 41.5 % (39.0-53.0); HDW 2.72; HGB 13.9 gm/dL (13.0-17.5); Luc # (Auto) 0.18; Luc % (Auto) 2; Lymphocytes % (A) 23 %; MCH 31.2 pg (25.0-35.0); MCHC 33.5 g/dL (31.0-37.0); MCV 92.9 fL (80.0-100.0); Mean Platelet Volume 7.3; Monocytes # (A) 0.4 k/uL (0-1.0); Monocytes % (A) 5 %; Neutrophils % (A) 68 %; RBC 4.46 m/uL (4.30-5.90); RDW 12.5 % (11.5-15.5); WBC 8.8 k/uL (3.8-10.6); WBC (Perox) 8.96
--- NOTE | 2016-08-04 08:36 | PN ---
DATE OF SERVICE: 08/03/2016 PRESENTING COMPLAINT: Falls. INTERVAL HISTORY: This patient presented with metabolic encephalopathy. Medications adjusted. Patient is far more awake. Also seen by Psychiatry doctor Dr. Bhatt, who has been adjusting the medication. Patient tolerating diet. Awaiting placement. Review of systems done for constitutional, cardiovascular, GI, pulmonary; relevant findings as above. Current medications are reviewed. On examination, temperature 98.1, pulse 58, respiration 18, blood pressure 111/71, pulse ox 96% on room air. GENERAL APPEARANCE: Lying in bed, awake, tolerating a diet. EYES: Pupils equal. Conjunctivae normal. NECK: JVD not raised. Mass not palpable. RESPIRATORY: Effort normal. LUNGS: Diminished breath sounds. CARDIOVASCULAR: First and second sounds normal. No edema. ABDOMEN: Soft, nontender. Liver and spleen not palpable. PSYCHIATRY: Awake, answering questions appropriately. INVESTIGATIONS: Accu-Cheks are noted. ASSESSMENT: 1. Acute metabolic encephalopathy, medication induced, improved. 2. Diabetes mellitus type 2, uncontrolled on presentation, better. 3. Hyperlipidemia. 4. Essential hypertension. 5. Multiple sclerosis controlled. 6. Gait dysfunction. 7. Mood disorder. 8. Bipolar disorder, mixed with psychotic features. 9. Cognitive disorder. 10. 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 PLAN: Continue current medication and treatment plan. Will check labs in the morning. Patient seen by Dr. Bhatt from psychiatry. Lamictal was increased to 50 mg b.i.d.
[2016-08-04] MEDS: INSULIN LISPRO (humaLOG) 300 UNIT/3 ML VIAL SQ SCH ×4 (08:49→21:20)
[2016-08-04] MEDS: INSULIN NPH/REG INSULIN 70/30 300 UNIT/3 ML VIAL SQ SCH ×2 (08:50→17:35)
[2016-08-04 08:51] LABS: Anion Gap 12 mmol/L; Blood Urea Nitrogen 18 mg/dL (9-20); Calcium 9.8 mg/dL (8.4-10.2); Carbon Dioxide 26 mmol/L (22-30); Chloride 102 mmol/L (98-107); Glucose 177 mg/dL (74-99); Non-African American GFR(MDRD) >60 (>60 ml/min/1.73 sqM); Potassium 4.4 mmol/L (3.5-5.1); Sodium 140 mmol/L (137-145)
[2016-08-04] MEDS: lamoTRIgine 25 MG TAB PO SCH ×2 (08:51→21:19)
[2016-08-04] MEDS: ESCITALOPRAM 10 MG TAB PO SCH (08:51)
[2016-08-04] MEDS: ASPIRIN 81 MG CHEW PO SCH (08:51)
[2016-08-04] MEDS: SPIRONOLACTONE 25 MG TAB PO SCH (08:51)
[2016-08-04] MEDS: LACTOBACILLUS ACIDOPH & BULGAR 1 EACH PACKET PO SCH (08:51)
[2016-08-04] MEDS: LOSARTAN 50 MG TAB PO SCH (08:51)
[2016-08-04] MEDS: GABAPENTIN 300 MG CAP PO SCH ×2 (08:51→17:32)
[2016-08-04 11:31] LABS: Glucose,Whole Blood 236 mg/dL (75-99)
--- NOTE | 2016-08-04 11:48 | P.PN ---
Progress Note - Text SUBJECTIVE: Patient was seen for psychiatric follow-up ,was laying in his bed ,friendly , pleasant ,stated that he might be discharged today to rehab.facility "I do like to have more freedom to go around and smell fresh air",denies any psychotic features ,denies any depressive symptoms,denies any side-effect from psychotropic medications MENTAL STATUS EXAM: Patient is 55 years old male ,friendly ,speech is circumstantial but easy to redirect ,stated mood "Better ",affect is bright ,denies any suicidal or homicidal ideation ,denies any manic or hypomanic features,denies any hallucinations ,insight and judgment improving ASSESSMENT :MOOD DISORDER DUE TO MS PLAN: ,continue psychotropic meds ,same dose:Lexapro,Lamictal and Risperdal , refer to outpatient
[2016-08-04 17:37] LABS: Glucose,Whole Blood 210 mg/dL (75-99)
[2016-08-04 20:02] LABS: Glucose,Whole Blood 135 mg/dL (75-99)
[2016-08-04] MEDS: ATORVASTATIN 10 MG TAB PO SCH (21:18)
[2016-08-04] MEDS: GABAPENTIN 100 MG CAP PO SCH (21:20)
[2016-08-04] MEDS: risperiDONE ODT 1 MG TAB PO SCH (21:20)
--- NOTE | 2016-08-04 22:20 | PN ---
DATE OF SERVICE: 08/04/2016 PRESENTING COMPLAINT: Fall. INTERVAL HISTORY: This patient with metabolic encephalopathy felt to be medication induced; doing better, tolerating a diet. social worker clinical looking into placement. Appears comfortable. Review of systems done for constitutional, cardiovascular, GI, pulmonary; relevant findings as above. Current medications are reviewed that include: 1. Lexapro. 2. Neurontin. 3. Humulin 70/30. 4. Lamictal. 5. Cozaar. 6. Risperdal. 7. Aldactone. On examination, temperature 97.9, pulse 89, respirations 18, blood pressure 109/66, pulse ox 94% on room air. GENERAL APPEARANCE: Lying in bed, comfortable. EYES: Pupils equal. Conjunctivae normal. NECK: JVD not raised. Mass not palpable. RESPIRATORY: Effort normal. LUNGS: Decreased breath sounds. CARDIOVASCULAR: First and second sounds normal. No edema. ABDOMEN: Soft, nontender. Liver and spleen not palpable. PSYCHIATRY: Awake, answering questions appropriately. INVESTIGATIONS: BUN 18, creatinine 0.62. Accu-Cheks are noted. ASSESSMENT: 1. Acute metabolic encephalopathy, medication induced. Patient is much improved. 2. Diabetes mellitus type 2, uncontrolled on presentation, doing better. 3. Hyperlipidemia. 4. Essential hypertension. 5. Multiple sclerosis, controlled. 6. Gait dysfunction. 7. Mood disorder. 8. Bipolar disorder, mixed with psychotic features. 9. Cognitive disorder. 10. 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 PLAN: At this point, will increase patient's Humulin 70/30 to 22 units b.i.d. Since blood pressure is still running on the lower side, will cut back on the Aldactone to 12.5 mg daily. Also there is no pain; hence, will cut back the patient's dose of Neurontin, too.
[2016-08-05 07:35] LABS: Glucose,Whole Blood 143 mg/dL (75-99)
[2016-08-05] MEDS ORDERED: SPIRONOLACTONE 25 MG TAB PO SCH (09:00)
[2016-08-05] MEDS: lamoTRIgine 25 MG TAB PO SCH (09:10)
[2016-08-05] MEDS: INSULIN NPH/REG INSULIN 70/30 300 UNIT/3 ML VIAL SQ SCH ×2 (09:11→17:02)
[2016-08-05] MEDS: INSULIN LISPRO (humaLOG) 300 UNIT/3 ML VIAL SQ SCH ×3 (09:11→17:01)
[2016-08-05] MEDS: GABAPENTIN 100 MG CAP PO SCH ×2 (09:12→16:59)
[2016-08-05] MEDS: ESCITALOPRAM 10 MG TAB PO SCH (09:13)
[2016-08-05] MEDS: LACTOBACILLUS ACIDOPH & BULGAR 1 EACH PACKET PO SCH (09:13)
[2016-08-05] MEDS: ASPIRIN 81 MG CHEW PO SCH (09:13)
[2016-08-05] MEDS: LOSARTAN 50 MG TAB PO SCH (09:14)
[2016-08-05 11:29] LABS: Glucose,Whole Blood 208 mg/dL (75-99)
[2016-08-05 15:41] VITALS: BP 129/82; PULSE 85; RESP 18; TEMP 96.8
--- NOTE | 2016-08-05 15:43 | DS ---
DATE OF ADMISSION: 08/01/2016 DATE OF DISCHARGE: 08/05/2016 FINAL DIAGNOSES: 1. Acute metabolic encephalopathy, probably medication-induced. 2. Diabetes mellitus, type 2, uncontrolled on presentation. 3. Hyperlipidemia. 4. Essential hypertension. 5. Multiple sclerosis, controlled. 6. Gait dysfunction. 7. Mood disorder. 8. Bipolar disorder, mixed type, with psychotic features. 9. Cognitive disorder. 10. 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 CONSULTATIONS: 1. Dr. Gill from Psychiatry. 2. Dr. Argueta from Neurology. HOSPITAL COURSE: This patient presented with altered mental status, falling, weak, tired. It was felt to be medication-induced possibly, and significant amount of medications was scaled back. Patient was seen by Dr. Argueta, who did not feel this was MS exacerbation. Patient was compatible with the same. Patient had a cervical spine that did not show any fracture. Lumbar spine x-ray did not show any fracture but did show osteoarthritis. Two-D echocardiogram showed preserved LV function. At the time of discharge, patient is tolerating a diet, doing much better. Sugars were better controlled. Communicating. Seen by Physical Therapy. DISCHARGE MEDICATIONS: 1. Aspirin 81 mg a day. 2. Lipitor 5 mg at bedtime. 3. Copaxone 20 mg subcutaneously daily. 4. Accu-Cheks per sliding scale. 5. Probiotic 1 capsule p.o. daily. 6. Cozaar 50 mg p.o. daily. 7. Tylenol 650 mg q.6 p.r.n. 8. Lexapro 10 mg daily; new. 9. Neurontin 200 mg p.o. t.i.d.; reduced dose. 10. Humulin 70/30 22 units before meals b.i.d. 11. Aldactone 12.5 p.o. b.i.d.; reduced dose. 12. Lasix discontinued. 13. Lamictal 50 mg p.o. b.i.d. 14. Risperdal M 3 mg p.o. at bedtime. 15. Ultram 50 mg q.6 p.r.n. for pain. DISPOSITION: Kaci. Follow with Dr. Gomez p.r.n. Follow up with [facility] in one week.
[2016-08-05 16:53] LABS: Glucose,Whole Blood 215 mg/dL (75-99)
== END 2016-08-05 17:40 | DRG 92 ==
LOC: EC 13:47 → 5MS5E 17:50 → OBSVTOIN 08-01 13:06 → 5MS5E 08-04 05:54
PROVIDERS: ADMIT Hospitalist; ATTEND Hospitalist
DX: G92 Toxic encephalopathy (principal); F31.60 Bipolar disorder, current episode mixed, unspecified; I11.0 Hypertensive heart disease with heart failure; F03.90 Unspecified dementia, unspecified severity, without behavioral disturbance, psychotic disturbance, mood disturbance, and anxiety; I50.9 Heart failure, unspecified; E11.65 Type 2 diabetes mellitus with hyperglycemia; T42.6X5A Adverse effect of other antiepileptic and sedative-hypnotic drugs, initial encounter; T43.225A Adverse effect of selective serotonin reuptake inhibitors, initial encounter; T43.595A Adverse effect of other antipsychotics and neuroleptics, initial encounter; E78.5 Hyperlipidemia, unspecified; F09 Unspecified mental disorder due to known physiological condition; F22 Delusional disorders; G35 Multiple sclerosis; I25.10 Atherosclerotic heart disease of native coronary artery without angina pectoris; M47.9 Spondylosis, unspecified; Z79.82 Long term (current) use of aspirin; Z87.891 Personal history of nicotine dependence; Z79.899 Other long term (current) drug therapy; Z79.84 Long term (current) use of oral hypoglycemic drugs
CPT/HCPCS: 36415; 70450; 71020; 72100; 72125; 80048; 80053; 80306; 81003; 83036; 85025; 93306; 96361; 96374; 99285